=== PATIENT | female | born 1990 | race Two or more races ===

== ENCOUNTER 2024-05-11 09:31 | Emergency (ER) | payer OTHER, SELFPAY ==
[2024-05-11 09:37] VITALS: BP 141/100
--- NOTE | 2024-05-11 11:23 | ED.GENMED ---
History of Present Illness
General
Chief Complaint: Abdominal Pain
Source: patient
Exam Limitations: none
Time Seen by Provider: 05/11/24 11:01
Nursing documentation reviewed up to this point in time: agreed with
History of Present Illness
History of Present Illness:
33-year-old female with history of umbilical hernia, followed by Dr. Garcia, states she sneezed this am and has had increasing pain around the area since. States she spoke with Dr. Garcia this a.m. and he sent her in for CT scan. Denies
fever/chills, pain 07/21 now. Denies n/v/d/c.
Past History
Past History
ED Past Medical History: GERD, Other (Takin Plaquinil being evaluated for Lupus vs mixed connective tissue disease) and Other (Started Zepbound 3 weeks ago, had her 3rd injection 05/06. )
ED Past Surgical History: Appendectomy, Bowel resection and Gynecological
Social History
Tobacco: Non-smoker
Alcohol: None
Drug: None
Living: with family
Employment: Employed
Family History
Family History: Other (Noncontributory)
Review of Systems
Review of Systems
Allergies reviewed?: Yes
All Other Systems: ROS reviewed and negative except as documented in HPI and ROS
Constitutional: Denies fever
Respiratory: Denies trouble breathing
Cardiac: Denies chest pain
ABD/GI: Reports abdominal pain; Denies nausea, vomiting, diarrhea, constipated or anorexia
: Denies dysuria, frequency or difficulty voiding
Musculoskeletal: Reports back pain (chronic takes Meloxicam prn)
Skin: Reports no symptoms
Neurological: Reports no symptoms
Phy Exam
Physical Exam
Physical Exam:
GENERAL: No acute distress. A&Ox3.
CONSTITUTIONAL: Afebrile.
EYES: clear, conjunctivae normal
ENMT: moist mucus membranes
RESPIRATORY: Regular respirations, nonlabored, lungs clear.
CARDIOVASCULAR: Regular rate and rhythm, no murmurs, no rubs.
GI: Soft, minimally tender periumbilical area. No palpable masses. normal BS
MUSCULOSKELETAL: Moves with ease. Well perfused.
SKIN: Warm, dry normal
PSYCH: Normal mood and affect. Well kept, interactive and appropriate
NEUROLOGIC: Awake, alert and oriented. No focal neurological deficits
Course
Orders/Labs/Results
Orders:
Orders
05/11/24 11:20
CT Abd/Pel (IV only)-DH only Urgent
Comment:
Reason For Exam: known umb hernia, worse pain, Dr. Garcia request
05/11/24 11:22
Test Result ONCE
05/11/24 11:43
Complete Blood Count/With Diff Urgent
Comprehensive Metabolic Panel Urgent
HCG, Serum Qualitative Screen Urgent
Abnormal Lab Results
05/11/24
11:43
RBC 5.92 H 10^6/uL
(4.20-5.40)
MCV 67.7 L fL
(81.0-99.0)
MCH 20.8 L pg
(27.0-31.0)
MCHC 30.7 L g/dL
(33.0-37.0)
RDW 15.5 H %
(11.5-14.5)
BUN 19 H mg/dl
(7-17)
ALT 40 H U/L
(0-35)
05/11/24 11:43
05/11/24 11:43
Vital Signs
Initial and Last Documented VS:
Initial Vital Signs
Temp Pulse Resp BP Pulse Ox
98.2 F 92 16 141/100 100
05/11/24 09:37 05/11/24 09:37 05/11/24 09:37 05/11/24 09:37 05/11/24 09:37
Last Documented Vital Signs
Temp Pulse Resp BP Pulse Ox
98.2 F 92 16 141/100 100
05/11/24 09:37 05/11/24 09:37 05/11/24 09:37 05/11/24 09:37 05/11/24 09:37
MDM/Problems Addressed
Differential Diagnosis Includes:
hernia, strangulated hernia/incarcerated hernia
MDM/Problems Addressed:
33-year-old female with history of umbilical hernia, followed by Dr. Garcia, states she sneezed this am and has had increasing pain around the area since. States she spoke with Dr. Garcia this a.m. and he sent her in for CT scan. Denies
fever/chills, pain 10 now. Denies n/v/d/c.
Afebrile, NAD
No distress, no significant pain, no sign of strangulated hernia.
CBC with no clinically significant abnormality
CMP with no clinically significant abnormality
2:00 PM: CT abdomen pelvis with IV contrast radiology report read: IMPRESSION: No acute pathology of the abdomen or pelvis identified.
Stable fat-containing ventral hernia. No evidence of incarceration or strangulation.
Mild fecal material in the colon. Progressed.
2:40 p.m.
[place] texted Dr. Garcia, who says he will call pt tomorrow.
Copy of report given to patient
Pt ambulated out with normal gait at discharge
*Critical Care Note
Total Time (30-74mins, 75-104mins- exclusive of procedures): Not Applicable
ED Attending Note
-
Portions of this chart may have been created with voice recognition software.� Occasional wrong word or��sound alike� substitutions may have occurred due to the inherent limitations of voice recognition software.
Discharge Plan
Departure
Patient Disposition: Home (Routine Discharge)
Date of Disposition: 05/11/24
Time of Disposition: 14:34
Patient with high blood pressure during this ER visit?: No
Condition: Good
Discharge Problem:
Ventral hernia
Instructions: Abdominal wall hernias
Prescriptions:
No Action
acetaminophen 325 mg Tablet
650 mg PO DAILYPRN PRN (Reason: mild pain)
ketorolac 10 mg Tablet
10 mg PO DAILYPRN PRN (Reason: moderate pain)
naproxen sodium [Aleve] 220 mg Tablet
440 mg PO DAILYPRN PRN (Reason: mild pain)
norethindrone (contraceptive) 0.35 mg Tablet
0.35 mg PO HS
Referrals:
MAUREEN HESTER [Other]
Herson Garcia MD [Active] - Next open appointment
Stand Alone Forms: Return to Work
Activity Restrictions/Additional Instructions:
As we discussed, your lab work shows nothing worrisome
Your CAT scan shows the hernia but no evidence of anything worrisome.
Contact Dr. Garcia if you want to discuss having the hernia fixed.
Interventions
Interventions:
*Risk Screen - Suicide Last Done: 05/11/24 09:37
*General Assessment Last Done: 05/11/24 09:37
*Neglect/Abuse Screening Last Done: 05/11/24 09:37
*ED COVID-19 Vaccine History Last Done: 05/11/24 09:37
*Nursing Disposition Last Done: 05/11/24 15:11
MA-Vzgtxz-Wljfxujgyx Assessment Last Done: 05/11/24 15:10
Discharge Date and Time
Discharge Date/Time: 05/11/24 15:11
Print Language: LATVIAN
[2024-05-11 12:11] LABS: HCG, Serum Qualitative Screen Negative
[2024-05-11 12:14] LABS: ALT (SGPT) 40 U/L (0-35); AST (SGOT) 28 U/L (14-36); Albumin 4.4 g/dl (3.5-5.0); Alkaline Phosphatase 86 U/L (38-126); Blood Urea Nitrogen 19 mg/dl (7-17); Calcium 9.5 mg/dl (8.4-10.2); Carbon Dioxide 26 mmol/L (22-30); Chloride 102 mmol/L (98-107); Glucose 85 mg/dl (70-99); Potassium 4.3 mmol/L (3.5-5.1); Sodium 137 mmol/L (135-145); Total Bilirubin 0.4 mg/dl (0.2-1.3); Total Protein 7.1 g/dl (6.3-8.2); eGFR > 60.00
[2024-05-11 12:20] LABS: % Basophils 0.4 % (0-2); % Eosinophils 1.9 % (0-6); % Immature Granulocytes 0.3 % (0-0.5); % Lymphocytes 26.3 % (20.5-51.1); % Monocytes 6.4 % (1.7-9.3); % Neutrophils 64.7 % (42.2-75.2); Absolute Eosinophils 0.1 10^3/uL (0-0.7); Absolute Lymphocytes 1.8 10^3/uL (1.2-3.4); Absolute Monocytes 0.4 10^3/uL (0.1-0.6); Absolute Neutrophils 4.4 10^3/uL (1.4-6.5); Hematocrit 40.1 % (37.0-47.0); Hemoglobin 12.3 g/dL (12.0-16.0); Mean Corp Hgb Conc. 30.7 g/dL (33.0-37.0); Mean Corpuscular Hgb 20.8 pg (27.0-31.0); Mean Corpuscular Volume 67.7 fL (81.0-99.0); Nucleated Red Blood Cells % 0 %; Platelet Count 218 10^3/uL (130-400); Red Blood Cell Count 5.92 10^6/uL (4.20-5.40); Red Cell Dist. Width 15.5 % (11.5-14.5); White Blood Cell Count 6.7 10^3/uL (4.8-10.8)
== END 2024-05-11 15:11 | disposition home or self-care (01) ==
LOC: EMR 09:31
PROVIDERS: Registered Nurse; EMERGENCY PHYSICIAN Emergency Medicine
DX: K43.9 Ventral hernia without obstruction or gangrene (principal); K21.9 Gastro-esophageal reflux disease without esophagitis; Z90.49 Acquired absence of other specified parts of digestive tract
CPT/HCPCS: 99284; 74177; 80053; 84703; 85025; Q9967

== ENCOUNTER 2024-11-07 06:10 | Day surgery (SDC) | payer OTHER, SELFPAY ==
[2024-11-07] VITALS (11 sets, daily range): BP systolic 96–132; BP diastolic 58–89; BMI 33.5
[2024-11-07] MEDS: TYLENOL 1000 MG PO (07:28)
[2024-11-07] MEDS: NORMOSOL-R/PLASMALYTE-A 1000 IV (07:47)
[2024-11-07] MEDS: HEPARIN 5000 UNITS SC (08:25)
--- NOTE | 2024-11-07 11:03 | OR.RPT ---
Operative Report
Operative Report
Primary Surgeon: Radha
Assisting: Dilan LEW
Pre-op Diagnosis: Ventral incisional hernia
Post-op Diagnosis: Ventral incisional hernia
Procedure Performed: Robotic repair ventral incisional hernia (rTAPP)
Anesthesia Type: GETA + TAP block
Specimen / Cultures: None
Estimated Blood Loss: 20cc
Complications: None immediate
Operative Findings: 4x8cm defect, 8x14cm bard soft mesh
Date of surgery: 11/07/24
Indications:� This 34F developed a symptomatic ventral incisional hernia. Robot assisted laparoscopic repair was planned.
Description of procedure:� The patient was taken to the operating room and positioned into supine position. The patient�s abdomen was prepped and draped in standard sterile fashion. A time-out was completed verifying correct patient, procedure,
site, positioning, and implants and special equipment prior to beginning this procedure.� A stab incision was made in the left upper quadrant, a Veress needle was inserted and proper position was confirmed by aspiration and saline drop test.
Following this, pneumoperitoneum was created with insufflation of carbon dioxide to 12 mmHg. Then a 8mm robotic trocar was inserted at the left of midline about 5cm inferior to the xiphoid level. The laparoscope was inserted and no injuries were
identified in the area. Under direct visualization, two 8mm trocars were placed a hand's breadth lateral to the initial trocar on either side under direct visualization.
Attention was turned to the defect. Omental adhesions to the abdominal all were taken down. The peritoneum was incised several cm superior to the defect and a peritoneal flap was developed in transverse and caudad directions using blunt and sharp
dissection and judicious electrocautery. The defect measured as above. The pressure was lowered to 8mmHg and the defect was closed with 0 PDS stratafix suture. The pressure was returned to 12mmHg. Mesh was passed into the abdomen and centered on
the defect and then placed against the underside of the abdominal wall and secured in place with 2-0 vicryl sutures at all four corners as well as under the defect. The flap was closed over the mesh and secured with 2-0 monocryl stratafix suture. A
few small rents in the flap were closed with 2-0 vicryl suture. A transversus abdominis plane block was then performed under laparoscopic vision with marcaine/decadron.
After ensuring adequate hemostasis, the trocars were removed and the pneumoperitoneum allowed to escape. The trocar incisions were closed at the skin level using 4-0 monocryl and topical skin adhesive. All counts were correct. The patient tolerated
the procedure well and was taken to the postanesthesia care unit in stable condition.
[2024-11-07] MEDS: DILAUDID 0.25 MG IV (12:03)
[2024-11-07] MEDS: ROXICODONE 5 MG PO (13:24)
[2024-11-07] MEDS: ZOFRAN 4 MG IV (14:23)
== END 2024-11-07 14:51 | disposition home or self-care (01) ==
LOC: SDS 06:10
PROVIDERS: ATTENDING PHYSICIAN Surgery
DX: K43.2 Incisional hernia without obstruction or gangrene (principal)
CPT/HCPCS: 49593; C1781